=== PATIENT | female | born 2005 | race Caucasian/White ===

== ENCOUNTER 2023-09-13 15:58 | Emergency (ER) | payer OTHER ==
[2023-09-13 16:03] VITALS: BP 120/80; PULSE 83; RESP 20; TEMP 98; BMI 22.1
[2023-09-13 18:00] LABS: BASO % 0.5 % (0-2.0); EOS % 1.6 % (0-4.5); HEMATOCRIT 40.7 % (32.4-45.2); HEMOGLOBIN 14.2 GM/dL (10.7-15.3); LYMPH % 19.8 % (8-40); MCH 31.9 pg (25.7-33.7); MCHC 34.9 g/dl (32.0-36.0); MEAN CELL VOLUME 91.6 fl (80-96); MEAN PLT VOLUME 7.8 fl (7.5-11.1); MONO % 6.1 % (3.8-10.2); PLATELET COUNT 318 10^3/uL (134-434); RBC 4.44 M/mm3 (3.60-5.2); RDW 12.9 % (11.6-15.6); WHITE BLOOD COUNT 8.2 K/mm3 (4.0-10.0)
[2023-09-13 18:24] LABS: AMYLASE 73 U/L (25-115)
[2023-09-13 18:30] LABS: ALBUMIN 4.5 g/dl (3.4-5.0); BLOOD UREA NITROGEN 6.2 mg/dL (7-18); CALCIUM 9.8 mg/dL (8.5-10.1)
[2023-09-13 18:33] LABS: CREATININE 0.6 mg/dL (0.55-1.3)
[2023-09-13 18:35] LABS: BILIRUBIN,TOTAL 0.6 mg/dL (0.2-1); TOT PROT 7.8 g/dl (6.4-8.2)
[2023-09-13 18:39] LABS: URINE APPEARANCE CLEAR; URINE BILIRUBIN NEGATIVE (NEGATIVE); URINE COLOR YELLOW; URINE GLUCOSE (UA) NEGATIVE (NEGATIVE); URINE KETONE TRACE (NEGATIVE); URINE LEUK ESTERASE NEGATIVE (NEGATIVE); URINE NITRITE NEGATIVE (NEGATIVE); URINE PROTEIN NEGATIVE (NEGATIVE)
== END 2023-09-13 19:30 | disposition home or self-care (01) ==
LOC: JER 15:58
DX: O21.9 Vomiting of pregnancy, unspecified (principal); Z20.822 Contact with and (suspected) exposure to COVID-19; Z3A.00 Weeks of gestation of pregnancy not specified
CPT/HCPCS: 0241U-QW; 36415; 76705-TC; 80053; 81003; 82150; 83690; 84702; 84703; 85025; 99284-25

== ENCOUNTER 2024-04-08 03:09 | Emergency (ER) | payer SELFPAY ==
[2024-04-08 03:29] VITALS: BMI 21.4
[2024-04-08 05:11] LABS: HCG,QUALITATIVE URINE Positive
[2024-04-08 05:51] LABS: PH,URINE 5.5 (5.0-8.0); URINE APPEARANCE Cloudy; URINE BILIRUBIN 3+ (NEGATIVE); URINE COLOR Red; URINE GLUCOSE (UA) Negative (NEGATIVE); URINE KETONE 1+ (NEGATIVE); URINE LEUK ESTERASE 3+ (NEGATIVE); URINE NITRITE Positive (NEGATIVE); URINE PROTEIN 3+ (NEGATIVE)
[2024-04-08 06:18] LABS: HEMATOCRIT 37.4 % (32.4-45.2); MCH 31.5 pg (25.7-33.7); MCHC 34.7 g/dl (32.0-36.0); MEAN CELL VOLUME 90.8 fl (80-96); MEAN PLT VOLUME 7.4 fl (7.5-11.1); PLATELET COUNT 308 10^3/uL (134-434); RBC 4.12 M/mm3 (3.60-5.2); RDW 13.6 % (11.6-15.6); WHITE BLOOD COUNT 14.6 K/mm3 (4.0-10.0)
[2024-04-08] MEDS ORDERED: CEPHALEXIN MONOHYDRATE 500 MG CAPSULE (UD) ONE (06:30)
[2024-04-08 06:36] LABS: POTASSIUM 3.9 mmol/L (3.5-5.1)
[2024-04-08] MEDS: CEPHALEXIN MONOHYDRATE 500 MG CAPSULE (UD) PO ONE (06:37)
[2024-04-08 06:38] LABS: CALCIUM 9.7 mg/dL (8.5-10.1)
[2024-04-08 06:39] LABS: BLOOD UREA NITROGEN 7.7 mg/dL (7-18)
[2024-04-08 06:42] LABS: CREATININE 0.7 mg/dL (0.55-1.3)
[2024-04-08 06:43] LABS: BILIRUBIN,TOTAL 0.4 mg/dL (0.2-1)
[2024-04-08 06:44] LABS: TOT PROT 7.1 g/dl (6.4-8.2)
[2024-04-08 07:32] VITALS: TEMP 98.2
[2024-04-08 09:04] LABS: ANISOCYTOSIS 0; MACROCYTOSIS 0
[2024-04-08 11:33] VITALS: BP 100/50; PULSE 55; RESP 20
== END 2024-04-08 12:01 | disposition home or self-care (01) ==
LOC: JER 03:09
DX: N93.9 Abnormal uterine and vaginal bleeding, unspecified (principal); R10.30 Lower abdominal pain, unspecified
CPT/HCPCS: 36415; 76817-TC; 80053; 81003; 84702; 84703; 85025; 86850; 86900; 86901; 99284-25

== ENCOUNTER 2024-04-10 13:40 | Emergency (ER) | payer SELFPAY ==
[2024-04-10 13:50] VITALS: BP 99/68; PULSE 68; RESP 20; TEMP 97.8; BMI 21.4
[2024-04-10 14:40] LABS: EPI CELLS >36 /uL (0-25.1); HYALINE CASTS 3 /uL (0-3.1); URINE APPEARANCE CLEAR; URINE BACTERIA 226 /uL (0-1359); URINE BILIRUBIN NEGATIVE (NEGATIVE); URINE COLOR YELLOW; URINE GLUCOSE (UA) NEGATIVE (NEGATIVE); URINE KETONE NEGATIVE (NEGATIVE); URINE LEUK ESTERASE NEGATIVE (NEGATIVE); URINE NITRITE NEGATIVE (NEGATIVE); URINE PROTEIN NEGATIVE (NEGATIVE); URINE RBC 8 /uL (0-23.9); URINE WBC 17 /uL (0-25.8)
== END 2024-04-10 15:31 | disposition home or self-care (01) ==
LOC: JERFT 13:40
DX: O03.9 Complete or unspecified spontaneous abortion without complication (principal)
CPT/HCPCS: 36415; 81003; 84702; 87086; 99283-25